=== PATIENT | male | born 1985 | race Asian ===

== ENCOUNTER 2018-08-22 08:00 | Outpatient (CLI) | payer OTHER ==
[2018-08-22 13:19] LABS: BASOPHILS # (AUTO) 0.1 10^3/uL (0.0-0.1); BASOPHILS % (AUTO) 2.2 %; EOSINOPHILS # (AUTO) 0.3 10^3/uL (0.0-0.7); EOSINOPHILS % (AUTO) 4.3 %; HGB - HEMOGLOBIN 14.2 g/dL (14.0-18.0); LYMPHOCYTES # (AUTO) 2.7 10^3/uL (1.5-3.5); LYMPHOCYTES % (AUTO) 40.2 %; MEAN CORPUSCULAR HEMOGLOBIN 20.5 pg (27.0-31.0); MEAN CORPUSCULAR HGB CONC 31.5 g/dL (32.0-36.0); MEAN CORPUSCULAR VOLUME 65.2 fL (80.0-94.0); MEAN PLATELET VOLUME 7.6 fL (7.4-11.4); MONOCYTES # (AUTO) 0.4 10^3/uL (0.0-1.0); MONOCYTES % (AUTO) 5.4 %; NEUTROPHILS # (AUTO) 3.2 10^3/uL (1.5-6.6); NEUTROPHILS % (AUTO) 47.9 %; PLT - PLATELET COUNT 248 10^3/uL (130-450); WHITE BLOOD COUNT 6.7 x10^3/uL (4.8-10.8)
[2018-08-22 13:30] LABS: ALBUMIN 4.4 g/dL (3.2-5.5); ALBUMIN/GLOBULIN RATIO 1.3 (1.0-2.2); ALKALINE PHOSPHATASE 62 IU/L (42-121); ALT ALANINE AMINOTRANSFERASE 82 IU/L (10-60); AST ASPARTATE AMINOTRANSFERASE 36 IU/L (10-42); BILIRUBIN,TOTAL 0.4 mg/dL (0.2-1.0); BUN - BLOOD UREA NITROGEN 13 mg/dL (6-20); CALCIUM 9.3 mg/dL (8.5-10.3); CARBON DIOXIDE - CO2 26 mmol/L (21-32); CHLORIDE 105 mmol/L (101-111); CHOL/HDL RATIO 4.5 (<5.0); CHOLESTEROL 187 mg/dL; CREATININE 0.6 mg/dL (0.6-1.2); GFR - MDRD 158 (>89); GLUCOSE 101 mg/dL (70-100); HDL CHOLESTEROL 42 mg/dL; LDL CHOLESTEROL,CALCULATED 118 mg/dL; LDL/HDL RATIO 2.8 (<3.6); SODIUM 138 mmol/L (135-145); TOTAL PROTEIN 7.9 g/dL (6.7-8.2); VLDL CHOLESTEROL 27 mg/dL
[2018-08-22 14:27] LABS: PLATELET ESTIMATE, MANUAL NORMAL (130-450,000) (NORMAL); PLATELET MORPHOLOGY 1+ LARGE PLATELETS (NORMAL)
[2018-08-22 14:36] LABS: HB2 TOTAL 15.5 g/dL; HEMOGLOBIN A1C 0.57 g/dL; HEMOGLOBIN A1C % 5.5 % (4.6-6.2)
== END 2018-08-22 23:59 | disposition home or self-care (01) ==
LOC: LAB.WCP 08:00
PROVIDERS: ATTEND Family Medicine
DX: Z00.00 Encounter for general adult medical examination without abnormal findings (principal); Z13.1 Encounter for screening for diabetes mellitus
CPT/HCPCS: 36415; 80053; 80061; 83036; 83721; 84443; 85025

== ENCOUNTER 2018-09-12 09:32 | Outpatient (CLI) | payer BC, OTHER ==
--- NOTE | 2018-09-12 13:43 | XRAY Report ---
Reason: SHOULDER PX Procedure Date: 09/12/2018 Accession Number: [id number] / [id number] Procedure: WCP - Shoulder 2 View BILAT CPT Code: FULL RESULT: Bilateral Shoulder Radiography EXAM DATE: 09/12/2018 10:03 AM. CLINICAL HISTORY: Chronic pain COMPARISON: None. TECHNIQUE: 2 views each. FINDINGS: Right: Bones: Normal. No fracture or bone lesion. Joints: The glenohumeral and acromioclavicular joints are normal. Soft tissues: The visualized hemithorax is unremarkable. No soft tissue swelling. Left: Bones: Normal. No fracture or bone lesion. Joints: The glenohumeral and acromioclavicular joints are normal. Soft tissues: The visualized hemithorax is unremarkable. No soft tissue swelling. IMPRESSION: Normal bilateral shoulder radiography. [facility]
== END 2018-09-12 09:33 | disposition home or self-care (01) ==
LOC: DI.WCP 09:32
PROVIDERS: ATTEND Family Medicine
DX: M25.511 Pain in right shoulder (principal); M25.512 Pain in left shoulder

== ENCOUNTER 2019-08-17 08:00 | Outpatient (CLI) | payer BC ==
[2019-08-17 12:36] LABS: BASOPHILS # (AUTO) 0.2 10^3/uL (0.0-0.1); BASOPHILS % (AUTO) 2.8 %; EOSINOPHILS # (AUTO) 0.4 10^3/uL (0.0-0.7); EOSINOPHILS % (AUTO) 7.3 %; HGB - HEMOGLOBIN 14.1 g/dL (14.0-18.0); LYMPHOCYTES # (AUTO) 2.3 10^3/uL (1.5-3.5); LYMPHOCYTES % (AUTO) 43.4 %; MEAN CORPUSCULAR HEMOGLOBIN 20.1 pg (27.0-31.0); MEAN CORPUSCULAR HGB CONC 29.7 g/dL (32.0-36.0); MEAN CORPUSCULAR VOLUME 67.8 fL (80.0-94.0); MEAN PLATELET VOLUME 9.6 fL (7.4-11.4); MONOCYTES # (AUTO) 0.3 10^3/uL (0.0-1.0); MONOCYTES % (AUTO) 5.8 %; NEUTROPHILS # (AUTO) 2.2 10^3/uL (1.5-6.6); NEUTROPHILS % (AUTO) 40.3 %; PLT - PLATELET COUNT 272 10^3/uL (130-450); RED BLOOD COUNT 7.01 10^6/uL (4.70-6.10); RED CELL DISTRIBUTION WIDTH 17.3 % (12.0-15.0); WHITE BLOOD COUNT 5.4 x10^3/uL (4.8-10.8)
[2019-08-17 12:53] LABS: ALBUMIN 4.4 g/dL (3.2-5.5); ALBUMIN/GLOBULIN RATIO 1.3 (1.0-2.2); ALKALINE PHOSPHATASE 63 IU/L (42-121); ALT ALANINE AMINOTRANSFERASE 82 IU/L (10-60); AST ASPARTATE AMINOTRANSFERASE 39 IU/L (10-42); BILIRUBIN,TOTAL 0.5 mg/dL (0.2-1.0); BUN - BLOOD UREA NITROGEN 9 mg/dL (6-20); CALCIUM 9.1 mg/dL (8.5-10.3); CARBON DIOXIDE - CO2 27 mmol/L (21-32); CHLORIDE 106 mmol/L (101-111); CHOL/HDL RATIO 4.7 (<5.0); CHOLESTEROL 185 mg/dL; CREATININE 0.7 mg/dL (0.6-1.2); GFR - MDRD 132 (>89); GLUCOSE 103 mg/dL (70-100); HDL CHOLESTEROL 39 mg/dL; LDL CHOLESTEROL,CALCULATED 122 mg/dL; LDL/HDL RATIO 3.1 (<3.6); SODIUM 138 mmol/L (135-145); TOTAL PROTEIN 7.8 g/dL (6.7-8.2); VLDL CHOLESTEROL 24 mg/dL
== END 2019-08-17 23:59 | disposition home or self-care (01) ==
LOC: LAB.N 08:00
PROVIDERS: ATTEND Family Medicine
DX: Z00.00 Encounter for general adult medical examination without abnormal findings (principal)
CPT/HCPCS: 36415; 80053; 80061; 83721; 84443; 85025

== ENCOUNTER 2019-08-17 08:48 | Outpatient (CLI) | payer BC ==
--- NOTE | 2019-08-17 16:16 | XRAY Report ---
Reason: BACK PAIN LUMBAR Procedure Date: 08/17/2019 Accession Number: [id number] / [id number] Procedure: XRN - Lumbar Spine Complete CPT Code: Preliminary Report FULL RESULT: EXAM: LUMBOSACRAL SPINE RADIOGRAPHY EXAM DATE: 08/17/2019 09:49 AM. CLINICAL HISTORY: BACK PAIN LUMBAR. COMPARISONS: None. TECHNIQUE: 5 views. Findings: Relevant images are indicated (image number, series number). There are 5 wnm-doy-csrbbpp lumbar vertebra with suspected transitional S1 level, no suspicious bony lesions. Partial visualization of mild lower thoracic spine dextroscoliosis. Mild intervertebral disk space narrowing L4-L5, L5-S1 levels. There is a mild grade 1 retrolisthesis L4 on L5. 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 Impressions: 1. There appeared to be 5 pht-rte-ysgyzej lumbar vertebra with a transitional S1 level, lower lumbar spine spondylosis, intervertebral disk space narrowing, mild grade 1 retrolisthesis L4 and L5. Consider cross-sectional imaging for further evaluation of this patient with known back pain. [facility]
== END 2019-08-17 08:49 | disposition home or self-care (01) ==
LOC: DI.N 08:48
PROVIDERS: ATTEND Family Medicine
DX: M47.816 Spondylosis without myelopathy or radiculopathy, lumbar region (principal); M47.817 Spondylosis without myelopathy or radiculopathy, lumbosacral region; M43.16 Spondylolisthesis, lumbar region; Z00.00 Encounter for general adult medical examination without abnormal findings
CPT/HCPCS: 36415; 72110; 80053; 80061; 84443; 85025

== ENCOUNTER 2019-09-27 12:20 | Outpatient (CLI) | payer BC ==
--- NOTE | 2019-09-27 13:57 | CT Report ---
Reason: LUMBAR BACK PAIN Procedure Date: 09/27/2019 Accession Number: [id number] / [id number] Procedure: CT - LUMBAR SPINE WO CPT Code: Final Report FULL RESULT: EXAM: CT LUMBAR SPINE WITHOUT CONTRAST EXAM DATE: 09/27/2019 12:32 PM. CLINICAL HISTORY: Lumbar back pain. COMPARISONS: LUMBAR SPINE COMPLETE 08/17/2019 9:31 AM. TECHNIQUE: Thin-section axial images were acquired of the lumbar spine from T12 to S1 without contrast. Post-processing: Coronal and sagittal reformats. Other: None. In accordance with CT protocol optimization, one or more of the following dose reduction techniques were utilized for this exam: automated exposure control, adjustment of mA and/or KV based on patient size, or use of iterative reconstructive technique. FINDINGS: Alignment: 4 mm retrolisthesis at L5-S1. Bones: Five uvn-fam-vorcumc lumbar vertebral bodies are present. No fractures or bone lesions. Disk Levels/Facets: Please note that the last rib-bearing segment is labeled T12. With this convention, S1 has lumbar and sacral characteristics and is considered a transitional vertebra. T12-L1: Unremarkable. L1-L2: Unremarkable. L2-L3: Unremarkable. L3-L4: Unremarkable. L4-L5: Unremarkable. L5-S1: Right paracentral focal disk extrusion with mass-effect on the thecal sac and the right S1 root in the lateral recess. Series 3 image 92, series 7 image 39. This measures 1.2 x 1.0 cm transversely and extends for a cephalocaudal distance of 1.0 cm. Musculature: Normal. No fatty atrophy. Other: The visualized retroperitoneum is unremarkable. IMPRESSION: 1. As noted on the previous plain x-ray comparison, the last rib-bearing vertebral segment is labeled T12. With this convention, S1 has both lumbar and sacral features and is thought to be a transitional segment. 2. L5-S1 shows right paracentral focal disk extrusion with mass-effect on the thecal sac and right S1 root in the lateral recess is likely as a source of the patient's discomfort, particularly if there is right lower extremity pain. [facility]
== END 2019-09-27 12:21 | disposition home or self-care (01) ==
LOC: DI 12:20
PROVIDERS: ATTEND Family Medicine
DX: M51.27 Other intervertebral disc displacement, lumbosacral region (principal)
CPT/HCPCS: 72131

== ENCOUNTER 2020-10-09 16:00 | Outpatient (CLI) | payer BC | END 2020-10-09 23:59 | disposition home or self-care (01) | LOC: LAB.WCP 16:00 | PROVIDERS: ATTEND Family Medicine | DX: J06.9 Acute upper respiratory infection, unspecified (principal); Z20.822 Contact with and (suspected) exposure to COVID-19 ==

== ENCOUNTER 2021-04-05 08:00 | Outpatient (CLI) | payer BC | END 2021-04-05 23:59 | disposition home or self-care (01) | LOC: LAB.N 08:00 | PROVIDERS: ATTEND Family Medicine | DX: R52 Pain, unspecified (principal); Z20.822 Contact with and (suspected) exposure to COVID-19 ==

== ENCOUNTER 2021-06-24 14:28 | Outpatient (CLI) | payer BC ==
--- NOTE | 2021-06-24 16:39 | XRAY Report ---
PROCEDURE: Lumbar Spine 2 View INDICATIONS: LUMBAR RADICULOPATHY TECHNIQUE: 3 views of the lumbar spine were acquired. COMPARISON: CT of lumbar spine dated 09/27/2019. FINDINGS: Bones: 5 nmi-xnl-aqqfqhg vertebrae are present. There is normal bony alignment. (11.18 (and (), an d and L4-5 and L5-S1 levels are seen. No vertebral body compression fractures. No suspicious bony le sions. Soft tissues: Overlying bowel gas pattern is normal. No suspicious soft tissue calcifications. IMPRESSION: Degenerative disc disease in lower lumbar spine. No acute compression fracture or spondy lolisthesis. Reviewed by: Drew Castillo MD on 06/24/2021 4:38 PM PST Approved by: Drew Castillo MD on 06/24/2021 4:38 PM PST Station ID: [id number]
== END 2021-06-24 14:29 | disposition home or self-care (01) ==
LOC: DI.N 14:28
PROVIDERS: ATTEND Family Medicine
DX: M51.06 Intervertebral disc disorders with myelopathy, lumbar region (principal); M51.16 Intervertebral disc disorders with radiculopathy, lumbar region

== ENCOUNTER 2021-07-31 08:00 | Outpatient (CLI) | payer BC | END 2021-07-31 23:59 | LOC: LAB.N 08:00 | PROVIDERS: ATTEND Family Medicine | DX: U07.1 COVID-19 (principal) ==

== ENCOUNTER 2023-08-01 07:49 | Day surgery (SDC) | payer OTHER ==
[2023-08-01] MEDS ORDERED: LACTATED RINGERS 1,000 ML IV ONE (08:22)
--- NOTE | 2023-08-01 08:31 | ANESTHESIA ---
Pre-Anesthesia VS, & Labs - Diagnosis elective sterilization - Procedure vasectomy Bilat Vital Signs: Temp Pulse Resp BP Pulse Ox O2 Flow Rate 36.4 C L 84 24 126/81 H 100 0 08/01/23 08:22 08/01/23 08:22 08/01/23 08:22 08/01/23 08:22 08/01/23 08:22 08/01/23 08:22 Height: 5 ft 4 in Weight (kg): 73.8 kg Body Mass Index: 27.9 BMI Classification: Overweight - NPO >8 hours - Lab Results Lab results reviewed: Yes Home Medications and Allergies Home Medications: Ambulatory Orders No Known Home Medications 07/21/23 No Known Home Medications 07/21/23 Allergies/Adverse Reactions: Allergies Allergy/AdvReac Type Severity Reaction Status Date / Time No Known Drug Allergies Allergy Verified 07/21/23 08:47 Anes History & Medical History - Anesthetic History Anesthesia Complications: reports: No previous complications Family history of Anesthesia Complications: Denies Family history of Malignant Hyperthermia: Denies - Medical History Cardiovascular: reports: High cholesterol Pulmonary: reports: None Gastrointestinal: reports: None Urinary: reports: None Musculoskeletal: reports: None Endocrine/Autoimmune: reports: None Skin: reports: None - Surgical History Eyes Ears Nose Throat (EENT): reports: Other Exam General: Alert, Oriented x3, Cooperative Mouth Openin Fingerbreadth Neck Mobility: Normal Mallampati classification: II Thyromental Distance: 4-6 cm Respiratory: Lungs clear, Normal breath sounds, No respiratory distress Cardiovascular: Regular rate Neurological: Normal speech Mental/Cognitive Status: Alert/Oriented X3, Normal for patient Cognitive Status: Within normal limits Plan Anesthesia Type: Total IV Consent for Procedure(s) Verified and Reviewed: Yes Code Status: Attempt Resuscitation ASA classification: 2-Mild systemic disease Is this case an emergency?: No
[2023-08-01] MEDS ORDERED: LIDOCAINE 1% 50 ML MDV ID ONE ×2 (09:50)
[2023-08-01] MEDS ORDERED: LACTATED RINGERS 500 ML IV ONE (10:09)
[2023-08-01] MEDS ORDERED: HYDROcod/ACETAM 5/325 MG TABLET PO PRN (10:11)
--- NOTE | 2023-08-01 10:15 | Discharge Plan ---
Discharge Plan Problem Reviewed?: Yes Disposition: 01 Home, Self Care Condition: Good Diet: Regular Activity Restrictions: Additional Comments (as instructed) Shower Restrictions: No Instruction Topics: Vasectomy No Scalpel No Smoking: If you smoke, Please STOP! Call for help.
--- NOTE | 2023-08-01 10:19 | OPERATIVE REPORT ---
Operative Report - General Procedure Date: 08/01/23 Planned Procedure: Bilateral Vasectomy Pre-Op Diagnosis: Elective Sterilization Procedure Performed: Bilateral Vasectomy Post Op Diagnosis: Elective Sterilization - Procedure Note Primary Surgeon: Liam Anesthesia Provider: BRANDYN Nicole Anesthesia Technique: MAC Estimated Blood Loss (mL): 0 Findings: Normal no scalpel vasectomy Complications: none - Other Other Information/Narrative: After informed consent was obtained the patient was brought to the OR and laid in the supine position. At that point the patient was anesthetized per anesthesia protocols. He was prepped and draped in the usual sterile fashion. A formal timeout was performed reconfirming the patient, procedure and laterality. The vas deferens on the right side was identified and grasped between fingers. 1% lidocaine was used as a local instilled into the skin. Using a sharp dissecting mosquito the skin and dartos were gently split. The vas was grasped using a vas clamp. The vas sheath was then incised and the vas deferens was identified and pulled up. It was then clamped on both sides and using electrocautery, a 1 cm portion was removed to the ends were cauterized. The ends were then suture-ligated using 3-0 chromic suture. There was excellent hemostasis. An interposition stitch was used to separate the 2 ends and the fascia. The skin was closed using 3-0 chromic suture. An identical procedure was performed on the left side. Band-Aids were placed. All surgical counts were correct. This concluded the procedure. The patient tolerated the procedure well was brought to PACU without further incident.
--- NOTE | 2023-08-01 10:31 | ANESTHESIA POST OP EVALUATION ---
Anesthesia Post Eval - Post Anesthesia Eval Vitals: Last Vital Signs Temp 36.4 C L 08/01/23 10:29 Pulse 69 08/01/23 10:29 Resp 18 08/01/23 10:29 BP 121/84 H 08/01/23 10:29 Pulse Ox 100 08/01/23 10:29 O2 Flow Rate 0 08/01/23 08:22 CV Function Including HR & BP: Stable Pain Control: Satisfactory Nausea & Vomiting: Negative Mental Status: Baseline Respiratory Status: Airway Patent Hydration Status: Satisfactory Anesthesia Complications: None
[2023-08-01 10:34] VITALS: O2SAT 100
[2023-08-01 11:04] VITALS: BP 120/65
== END 2023-08-01 07:50 | disposition home or self-care (01) ==
LOC: OR 07:49
PROVIDERS: ATTEND Urology
DX: Z30.2 Encounter for sterilization (principal)